=== PATIENT | female | born 1970 | race Two or more races ===

== ENCOUNTER 2018-01-12 16:39 | Emergency (ER) | payer MEDICAID, OTHER ==
[~2018-01-12] VITALS: Ht 162.6 cm; Wt 52.2 kg
[2018-01-12] MEDS ORDERED: KETOROLAC TROMETH 30 MG/ML 1ML VIAL IV ONE (21:15)
[2018-01-12] MEDS ORDERED: fentaNYL CITRATE 100 MCG/2 ML VL IV ONE (21:15)
[2018-01-12 21:27] VITALS: BP 115/68
[2018-01-12] MEDS ORDERED: KETOROLAC TROMETH 60MG/2ML VIAL IM ONE (22:00)
[2018-01-12] MEDS ORDERED: IBUPROFEN 600 MG TAB PO ONE (22:00)
== END 2018-01-12 21:37 | disposition home or self-care (01) ==
LOC: ER 16:44
DX: S63.591A Other specified sprain of right wrist, initial encounter (principal); S43.491A Other sprain of right shoulder joint, initial encounter; S30.1XXA Contusion of abdominal wall, initial encounter; Z88.5 Allergy status to narcotic agent; V49.49XA Driver injured in collision with other motor vehicles in traffic accident, initial encounter; Y93.89 Activity, other specified; Y99.8 Other external cause status; Y92.488 Other paved roadways as the place of occurrence of the external cause
CPT/HCPCS: 36415; 72040; 73030; 73060; 73100; 74176; 84702; 96372; 99285; J1885

== ENCOUNTER 2021-04-08 14:07 | Emergency (ER) | payer MEDICAID ==
[~2021-04-08] VITALS: Ht 162.6 cm; Wt 58.5 kg
[2021-04-08 19:26] VITALS: BP 113/80
[2021-04-08] MEDS ORDERED: KETOROLAC TROMETH 60MG/2ML VIAL IM ONE (19:45)
[2021-04-08] MEDS ORDERED: methylPREDNISolone SOD SUCC 125 MG/2 ML VL IM ONE (19:45)
== END 2021-04-08 20:31 | disposition home or self-care (01) ==
LOC: ER 14:07
DX: M54.2 Cervicalgia (principal); M54.50 Low back pain, unspecified; M62.838 Other muscle spasm; G44.209 Tension-type headache, unspecified, not intractable; F43.0 Acute stress reaction; V43.52XA Car driver injured in collision with other type car in traffic accident, initial encounter; Y93.89 Activity, other specified; Y92.488 Other paved roadways as the place of occurrence of the external cause; Y99.8 Other external cause status
CPT/HCPCS: 96372; 99284; J1885; J2930